=== PATIENT | female | born 1955 | race Hispanic/Latino ===

== ENCOUNTER 2018-04-03 09:52 | Day surgery (SDC) | payer BC ==
[2018-03-26 15:01] VITALS: BMI 30.9
[2018-04-03] MEDS ORDERED: Propofol 10 mg/ml Inj (20 ML) ONE (11:37)
[2018-04-03] MEDS ORDERED: ePHEDrine 50 mg/ml Inj ONE (12:10)
[2018-04-03] MEDS ORDERED: Sodium Chloride 0.9% 1,000 ML IV SCH (12:15)
[2018-04-03 12:26] VITALS: TEMP 98.2; O2SAT 98
[2018-04-03 13:22] VITALS: BP 111/55; PULSE 72; RESP 18
== END 2018-04-03 13:29 | disposition home or self-care (01) ==
LOC: ENDO 09:52
PROVIDERS: ATTEND Internal Medicine Gastroenterology
DX: K55.20 Angiodysplasia of colon without hemorrhage (principal); K57.30 Diverticulosis of large intestine without perforation or abscess without bleeding; K64.0 First degree hemorrhoids; K62.5 Hemorrhage of anus and rectum
CPT/HCPCS: 45384; J2001; J2704; J7030; J7040